=== PATIENT | female | born 1980 ===

== ENCOUNTER 2023-01-26 14:51 | Emergency (ER) | payer BC ==
[~2023-01-26] VITALS: Ht 160 cm; Wt 120.0 kg
[~2023-01-26 14:51] MED LIST: AC500T PO; DCS100C PO; HYDR-757 PO; IBUP-1773 PO; PREN-93 PO
[2023-01-26 15:02] VITALS: BP 153/86
--- NOTE | 2023-01-26 15:44 | ED Lower Extremity ---
General Chief Complaint: Lower Extremity Stated Complaint: FALL | RT LEG INJ Nursing Triage Note: PT TO TRIAGE PER W/C. PT STATES STEPPED IN A HOLE W R LEG TIBIAL AREA SWOLLEN. CO OF PAIN 08/23 Source: patient Exam Limitations: no limitations History of Present Illness Date Seen by Provider: Jan 26, 2023 Time Seen by Provider: 15:36 Initial Comments Patient is a 42-year-old female who presents to the emergency room with right proximal tibia pain after falling in a hole. She states she went forward and has a small abrasion in the proximal lower leg. She states it hurts to bear weight. She has not taken any medication for pain. Denies any other complaints of injury. Onset: just prior to arrival (2hr ago) Severity: moderate Pain/Injury Location: right leg Method of Injury: fell Modifying Factors: Improves With Immobilization; Worse With Movement Allergies and Home Medications Allergies Coded Allergies: No Known Drug Allergies (Unverified , 09/20/13) Patient Home Medication List Home Medication List Reviewed: Yes Docusate Sodium (Colace) 100 Mg Capsule, 100 MG PO BID Prescribed by: PHAN CHRISTINA on 11/19/13 0831 Hydrocodone Bit/Acetaminophen ([place] 5-325 Tablet) 1 Each Tablet, 1 EA PO Q6H PRN for MILD PAIN Prescribed by: PHAN CHRISTINA on 11/19/13 0831 Ibuprofen (Rx-Motrin) 600 Mg Tab, 600 MG PO Q6H PRN for PAIN Prescribed by: PHAN CHRISTINA on 11/19/13 0831 Vit/Fe Fumarate/Fa ( Multivitamins Tablet) 1 Each Tablet, 1 EACH PO DAILY, (Reported) Entered as Reported by: LAMONT HUI on 09/20/13 0202 Review of Systems Constitutional: see HPI EENTM: no symptoms reported Respiratory: no symptoms reported Cardiovascular: no symptoms reported Gastrointestinal: no symptoms reported Genitourinary: no symptoms reported Musculoskeletal: other (right leg pain and swelling) Skin: other (small abrasion) Past Zfwtqga-Gidyvl-Cocflt Hx Patient Social History Tobacco Use?: No Substance use?: No Alcohol Use?: Yes Alcohol Frequency: Rarely Pt feels they are or have been: No Immunizations Up To Date Tetanus Booster (TDap): Unknown PED Vaccines UTD: Yes Influenza Vaccine Up-to-Date: No; Not Current First/Initial COVID19 Vaccinat: no Past Medical History Surgery/Hospitalization HX: 3 C-SECTIONS AND T AND A. Reproductive Disorders: No Diabetes, Non-Insulin dep Hearing Impairment: Hard of Hearing Anxiety Adverse Reaction/Blood Tranf: No Family Medical History Alcoholism 03 FATHER, Onset:30's - 40 Family history: Allergy 03 FATHER (pcn) Family history: Diabetes mellitus 03 FATHER, Onset:50's - 60 Family history: Hypertension 03 FATHER Hypercholesterolemia 03 FATHER Seizure disorder 03 FATHER (EPILEPSY) 09 SISTER (EPILEPSY) Stroke 03 FATHER No Family History of: Abdominal aortic aneurysm Ballico's disease Aphasia Cancer Cancer of colon Cataract Chest pain Congenital heart disease Congestive heart failure Cystic fibrosis Dementia Dysphagia Family history: Alzheimer's disease Family history: Arthritis Family history: Asthma Family history: Breast disease Family history: Cardiovascular disease Family history: Coronary thrombosis Family history: Gastrointestinal disease Family history: Glaucoma Family history: Osteoporosis Family history: Thyroid disorder Headache Hearing loss Heart disease Hereditary disease History of - anemia History of - disorder History of - respiratory disease History of drug abuse Human immunodeficiency virus (HIV) seropositivity Infertile Kidney disease Malignant neoplasm of lung Myocardial infarction Parkinson's disease Prostate cancer Psychotic disorder Tuberculosis Visual impairment Physical Exam Vital Signs Vital Signs - First Documented 01/26/23 15:02 Temp 36.7 Pulse 93 Resp 16 B/P (MAP) 153/86 (108) Pulse Ox 97 Capillary Refill : Less Than 3 Seconds Height, Weight, BMI Height: '" Weight: 252lbs. oz. [id number]; 46.00 BMI Method: General Appearance: WD/WN, no apparent distress Cardiovascular: regular rate, rhythm Respiratory: lungs clear, normal breath sounds, no respiratory distress, no accessory muscle use Gastrointestinal: non tender, soft Hips: bilateral hip non-tender, bilateral hip normal inspection, bilateral hip normal range of motion, bilateral hip no evidence of injury Legs: left leg non-tender, left leg normal inspection, left leg normal range of motion, left leg no evidence of injury; right leg pain, right leg soft tissue tenderness, right leg swelling Knees: bilateral knee non-tender, bilateral knee normal inspection, bilateral knee normal range of motion, bilateral knee no evidence of injury Ankles: bilateral ankle non-tender, bilateral ankle normal inspection, bilateral ankle normal range of motion, bilateral ankle no evidence of injury Feet: bilateral foot non-tender, bilateral foot normal inspection, bilateral foot normal range of motion, bilateral foot no evidence of injury Neurologic/Psychiatric: alert, normal mood/affect, oriented x 3 Skin: normal color, warm/dry Progress/Results/Core Measures Results/Orders My Orders Orders - ANOOP GUERRA MD Ketorolac Injection (Toradol Injection) (01/26/23 15:45) Tibia/Fibula, Right, 2 Views (01/26/23 15:43) Medications Given in ED Vital Signs/I&O 01/26/23 15:02 Temp 36.7 Pulse 93 Resp 16 B/P (MAP) 153/86 (108) Pulse Ox 97 Blood Pressure Mean: 108 Diagnostic Imaging Diagonstic Imaging: Xray Comments tib fib - interpreted by [facility] - no fracture [facility] [place] NAME: [facility] REC#: [id number] PT STATUS: REG ER : 1980 PHYSICIAN: ANOOP GUERRA MD ADMIT DATE: 01/26/23/ER Draft Date of Exam:01/26/23 TIBIA/FIBULA, RIGHT, 2 VIEWS INDICATION: Fall with right leg injury. AP and lateral views of right lower leg are obtained. FINDINGS: No acute fracture or dislocation is identified. No abnormal lytic or sclerotic focus is seen, and there is no radiopaque foreign body. IMPRESSION: No acute abnormality. Dictated on workstation # [id number] Dict: 01/26/23 1622 Trans: 01/26/23 1623 [facility] [id number] Interpreted by: BRADLY CANADA MD Electronically signed by: Departure Impression Primary Impression: Contusion of right lower leg Qualified Codes: S80.11XA - Contusion of right lower leg, initial encounter Disposition: HOME, SELF-CARE Condition: Stable Departure-Patient Inst. Decision time for Depature: 16:20 Referrals: MAURISIO MORFIN (PCP/Family) Primary Care Physician Patient Instructions: Contusion (DC) Add. Discharge Instructions: Apply ice off-and-on for the next 24 hours to decrease swelling. Ensg-qhw-bqvwfyb ibuprofen 3 pills which is 600 mg every 6 hours as needed with food for pain. Return to the emergency room for any increasing pain, redness, fever or other emergent, concerning symptoms. ANOOP GUERRA MD Jan 26, 2023 15:44
[2023-01-26] MEDS ORDERED: KETOROLAC 30 MG/ML VIAL IM ONE (15:45)
--- NOTE | 2023-01-26 16:24 | Diagnostic Imaging Report ---
INDICATION: Fall with right leg injury. AP and lateral views of right lower leg are obtained. FINDINGS: No acute fracture or dislocation is identified. No abnormal lytic or sclerotic focus is seen, and there is no radiopaque foreign body. IMPRESSION: No acute abnormality. Dictated by: Dictated on workstation # [id number]
== END 2023-01-26 16:24 | disposition home or self-care (01) ==
LOC: EDUNIT# 14:51 → ER 14:55
DX: S80.11XA Contusion of right lower leg, initial encounter (principal); W17.2XXA Fall into hole, initial encounter
CPT/HCPCS: 73590